=== PATIENT | female | born 1980 | race Caucasian/White ===

== ENCOUNTER 2019-03-18 14:11 | Emergency (ER) | payer OTHER ==
[2019-03-18 14:26] VITALS: BP 147/89
--- NOTE | 2019-03-18 15:48 | UC ---
Complaint Female HPI - HPI Summary HPI Summary: 38 yo with 3 day history of dysuria, frequency and urgency. She states that she gets one to 2 UTI's per year. She has a clear, , non-pruritic, non-odorous vaginal discharge, and although she states that she is not concerned about STI's , she would like urinary screening for GC and Chlamydia. No abdominal pain, dyspareunia or fever. Same partner x 1 year. - History Of Current Complaint Chief Complaint: UCGU Stated Complaint: BURNING WHEN URINATING Time Seen by Provider: 03/18/19 15:39 Hx Obtained From: Patient Hx Last Menstrual Period: 02/28/19 ?: No Onset/Duration: Gradual Onset, Lasting Days Timing: Intermittent, Lasting Seconds Severity Initially: Mild Severity Currently: Moderate Pain Intensity: 7 Character: Burning, Cramping Aggravating Factor(s): Urination Alleviating Factor(s): Nothing Associated Signs And Symptoms: Positive: Vaginal Discharge - clear. Negative: Fever, Back Pain - Allergies/Home Medications Allergies/Adverse Reactions: Allergies Allergy/AdvReac Type Severity Reaction Status Date / Time No Known Allergies Allergy Verified 03/18/19 14:26 Home Medications: Home Medications Iron 18 mg PO 03/18/19 [History] PMH/Surg Hx/FS Hx/Imm Hx Previously Healthy: Yes - Surgical History Surgical History: Yes Surgery Procedure, Year, and Place: appy ,ear tubes - Family History Known Family History: Positive: Non-Contributory - Social History Occupation: Unemployed Lives: With Family Alcohol Use: None Substance Use Type: None Smoking Status (MU): Heavy Every Day Tobacco Smoker Review of Systems All Other Systems Reviewed And Are Negative: Yes Constitutional: Positive: Negative Skin: Positive: Negative Eyes: Positive: Negative ENT: Positive: Negative Respiratory: Positive: Other - smokes daily, no cough Cardiovascular: Negative: Palpitations, Chest Pain Gastrointestinal: Negative: Abdominal Pain, Vomiting, Diarrhea, Nausea Genitourinary: Positive: Dysuria, Frequency, Urgency Motor: Positive: Negative Neurovascular: Positive: Negative Musculoskeletal: Positive: Negative Neurological: Positive: Negative Psychological: Positive: Negative Is Patient Immunocompromised?: No Physical Exam Triage Information Reviewed: Yes Appearance: Well-Appearing, No Pain Distress Vital Signs: Initial Vital Signs Temp 98 F 03/18/19 14:23 Pulse 96 03/18/19 14:23 Resp 18 03/18/19 14:23 BP 147/89 03/18/19 14:23 Pulse Ox 100 03/18/19 14:23 ENT: Positive: Pharynx normal Neck: Positive: Supple, Nontender, No Lymphadenopathy Respiratory: Positive: Lungs clear, Normal breath sounds Cardiovascular: Positive: RRR, No Murmur Abdomen Description: Positive: Nontender, No Organomegaly, Soft. Negative: CVA Tenderness (R), CVA Tenderness (L) Musculoskeletal Exam: Normal Neurological Exam: Normal Psychological Exam: Normal Skin Exam: Normal Diagnostics - Laboratory Lab Results: UA with 3+ WBC esterace. Complaint Female Dx - Course Course Of Treatment: bactrim for treatment of UTI, would like pyridium for symptoms. - Differential Dx/Diagnosis Differential Diagnosis/HQI/PQRI: Renal Colic, Urinary Tract Infection Provider Diagnosis: UTI (urinary tract infection) Discharge ED - Sign-Out/Discharge Documenting (check all that apply): Patient Departure All imaging exams completed and their final reports reviewed: No Studies - Discharge Plan Condition: Good Disposition: HOME Prescriptions: Phenazopyridine 200 mg (NF) [Pyridium 200 MG tab *] 200 mg PO TID PRN #10 tab PRN Reason: Spasms - Bladder Sulfamethox/Trimethoprim DS* [Bactrim DS 800/160 TAB*] 1 tab PO BID #10 tab Patient Education Materials: Urinary Tract Infection in Women (ED) Referrals: No Primary Care Phys,NOPCP [Primary Care Provider] - Additional Instructions: You have been prescribed bactrim for treatment of urinary infection, and will be notified if a change of treatment is needed based on the culture report. This will be back in 2 days. Use pyridium for relief of urinary burning and frequency. Ensure a high intake of fluids. - Billing Disposition and Condition Condition: GOOD Disposition: Home
[2019-03-19 14:43] LABS: Chlamydia trachomatis NAA Negative (Negative); Neisseria gonorrhoeae (GC) NAA Negative (Negative)
== END 2019-03-18 16:05 | disposition home or self-care (01) ==
LOC: UCEAST 14:11
DX: N39.0 Urinary tract infection, site not specified (principal); F17.290 Nicotine dependence, other tobacco product, uncomplicated
CPT/HCPCS: 81003; 87086; 87491; 87591; 99202; G0463